=== PATIENT | male | born 1985 | race Caucasian/White ===

== ENCOUNTER 2016-08-14 18:10 | Emergency (ER) | payer SELFPAY ==
[2016-08-14 18:26] VITALS: BMI 34.5
[2016-08-14] MEDS ORDERED: Sodium Chloride 0.9% 1,000 ML IV ONE (19:19)
--- NOTE | 2016-08-14 19:19 | C.PDOC ---
History Of Present Illness 31 y/o male presents to the ED with complaints of swelling and tenderness to left cheek. Pt states has had an abscess draining for the past week, decreasing in size. Denies fever, chills, or any other complaints. Pt reports history of insulin dependent diabetes, but no longer takes medications for the past 6 months. Time Seen by Provider: 08/14/16 19:19 Chief Complaint (Nursing): Abnormal Skin Integrity History Per: Patient History/Exam Limitations: no limitations Onset/Duration Of Symptoms: Days Current Symptoms Are (Timing): Still Present Quality Of Symptoms: Painful, Swollen, Draining Severity: Moderate Pain Scale Rating Of: 5 Recent travel outside of the [place]: No Past Medical History Reviewed: Historical Data, Nursing Documentation, Vital Signs Vital Signs: Last Vital Signs Temp 97.9 F 08/14/16 21:30 Pulse 74 08/14/16 21:30 Resp 18 08/14/16 21:30 BP 122/78 08/14/16 21:30 Pulse Ox 97 08/14/16 21:30 - Medical History PMH: Pericarditis - [facility] Procedures DRAINAGE OF ABD SUBCU/FASCIA, OPEN APPROACH (06/22/15) DRAINAGE OF PERICARDIAL CAVITY WITH DRAIN DEV, OPEN APPROACH (05/30/15) Family History: States: Unknown Family Hx - Social History Hx Alcohol Use: No Hx Substance Use: No - Immunization History Hx Tetanus Toxoid Vaccination: Yes Hx Influenza Vaccination: No Hx Pneumococcal Vaccination: No Review Of Systems Constitutional: Negative for: Fever, Chills ENT: Positive for: Other (swelling and tenderness to left cheek, draining abscess) Cardiovascular: Negative for: Chest Pain Respiratory: Negative for: Shortness of Breath Gastrointestinal: Negative for: Nausea, Vomiting, Abdominal Pain Musculoskeletal: Negative for: Neck Pain, Shoulder Pain Skin: Positive for: Rash, Lesions Neurological: Negative for: Weakness Psych: Negative for: Anxiety Physical Exam - Physical Exam Appears: Non-toxic Skin: Warm, Dry, No Rash, Other (2x3 cm abscess to left cheek with purulent drainage tenderness and surrounding erythema) Head: Atraumatic, Normacephalic Eye(s): bilateral: Normal Inspection, PERRL, EOMI Ear(s): Bilateral: Normal Nose: Normal Oral Mucosa: Moist Gingiva: Normal Appearing Throat: No Erythema, No Exudate Neck: Supple Cardiovascular: Rhythm Regular, No Murmur Respiratory: No Rales, No Rhonchi, No Wheezing Extremity: Bilateral: Atraumatic Neurological/Psych: Oriented x3, Normal Speech Gait: Steady ED Course And Treatment - Laboratory Results Result Diagrams: 08/14/16 19:54 08/14/16 19:54 O2 Sat by Pulse Oximetry: 99 (room air) Pulse Ox Interpretation: Normal Reevaluation Time: 21:54 Reassessment Condition: Improved Medical Decision Making Medical Decision Making: Upon provider reevaluation patient is feeling better, is medically stable, and requires no further treatment in the ED at this time. Patient will be discharged home with Rx for keflex, motrin . Counseling was provided and all questions were answered regarding diagnosis and need for follow up with the referred clinic. There is agreement to discharge plan. Return if symptoms persist or worsen. Disposition Counseled Patient/Family Regarding: Studies Performed, Diagnosis, Need For Followup, Rx Given - Disposition Referrals: [facility] [Outside] [facility] [Outside] Disposition: HOME/ ROUTINE Disposition Time: 19:19 Condition: FAIR Additional Instructions: Please return if fever, chills, readness that spreads. Also you are allergic to Vancomycin Prescriptions: Cephalexin [Keflex] 500 mg PO QID #28 capsule Ibuprofen [Motrin Tab] 800 mg PO TID PRN #15 tab PRN Reason: Pain, Moderate (4-7) Instructions: Abscess (ED) - Clinical Impression Clinical Impression: Skin lesion, Cellulitis, Abscess, Vancomycin adverse reaction - Scribe Statement The provider has reviewed the documentation as recorded by the Ulices Aguilera Provider Attestation: All medical record entries made by the Ulices were at my direction and personally dictated by me. I have reviewed the chart and agree that the record accurately reflects my personal performance of the history, physical exam, medical decision making, and the department course for this patient. I have also personally directed, reviewed, and agree with the discharge instructions and disposition.
[2016-08-14] MEDS ORDERED: Sodium Chloride 0.9% 1,000 ML ONE (19:40)
[2016-08-14] MEDS ORDERED: Vancomycin 1 GM 1 GM/250 ML BAG IVPB SCH (19:45)
[2016-08-14] MEDS ORDERED: Vancomycin 1 GM 1 GM/250 ML BAG IVPB ONE (19:57)
[2016-08-14 20:01] LABS: BASO # 0.1 K/uL (0.0-0.2); BASO % 0.9 % (0.0-2.0); EOS # 0.3 K/uL (0.0-0.7); LYMPH % 27.4 % (20.0-40.0); MEAN CORPUSCULAR HEMOGLOBIN 30.4 pg (27.0-31.0); MEAN CORPUSCULAR HGB CONC 33.3 g/dL (33.0-37.0); MEAN PLATELET VOLUME 7.9 fL (7.2-11.7); MONO # 1.1 K/uL (0.0-0.8); MONO % 9.8 % (0.0-10.0); RED CELL DISTRIBUTION WIDTH 12.3 % (11.5-14.5); WHITE BLOOD COUNT 10.9 K/uL (4.8-10.8)
[2016-08-14 20:06] LABS: CHLORIDE 101 mmol/L (98-107); SODIUM 138 mmol/L (132-148)
[2016-08-14 20:07] LABS: POTASSIUM 3.5 mmol/L (3.6-5.2)
[2016-08-14 20:09] LABS: ALB/GLOB RATIO 1.2 (1.0-2.1); ALKALINE PHOSPHATASE 79 U/L (38-126); ALT/SGPT 65 U/L (21-72); AST/SGOT 41 U/L (17-59); BILIRUBIN,TOTAL 0.6 mg/dL (0.2-1.3); BLOOD UREA NITROGEN 13 mg/dL (9-20); CARBON DIOXIDE 26 mmol/L (22-30); GFR AFRICAN-AMERICAN > 60; GLUCOSE,RANDOM 121 mg/dL (75-110)
[2016-08-14 20:10] LABS: CALCIUM 9.3 mg/dl (8.6-10.4)
[2016-08-14 20:11] LABS: INR 1.1
[2016-08-14 20:18] LABS: VENOUS BLOOD GAS BASE EXCESS 0.3 mmol/L (0.0-2.0); VENOUS BLOOD GAS PCO2 45 mmHg (40-60); VENOUS BLOOD PH 7.37 (7.32-7.43)
[2016-08-14 20:23] LABS: RBC URINE 147 /hpf (0-3); URINE BACTERIA RARE (<OCC); URINE BILIRUBIN NEGATIVE (NEGATIVE); URINE BLOOD 3+ (NEGATIVE); URINE COLOR Yellow (YELLOW); URINE GLUCOSE (UA) NORMAL (Normal); URINE KETONE NEGATIVE (NEGATIVE); URINE LEUKOCYTE ESTERASE NEG Leu/uL (Negative); URINE PROTEIN 1+ mg/dL (NEGATIVE); URINE UROBILINOGEN NORMAL mg/dL (0.2-1.0); WBC URINE 5 /hpf (0-5)
[2016-08-14] MEDS ORDERED: ceFAZolin IV 2 gm in Dextrose 2 GM/100 ML BAG IVPB ONE (21:00)
[2016-08-14] MEDS ORDERED: DiphenhydrAMINE 50 mg/ml Inj IVP STA (21:11)
[2016-08-14] MEDS ORDERED: DiphenhydrAMINE 50 mg/ml Inj ONE (21:14)
[2016-08-14 21:47] VITALS: BP 122/78; PULSE 74; RESP 18; TEMP 97.9
[2016-08-14 21:57] VITALS: O2SAT 99
== END 2016-08-14 22:30 | disposition home or self-care (01) ==
LOC: SUPCPDRO 18:10 → C.ER 18:10
DX: L02.01 Cutaneous abscess of face (principal); L03.211 Cellulitis of face; T88.7XXA Unspecified adverse effect of drug or medicament, initial encounter; T36.8X5A Adverse effect of other systemic antibiotics, initial encounter
CPT/HCPCS: 80053; 81001; 82009; 82803; 82948; 85025; 85610; 85730; 87040; 96365; 96367; 96375; 99284; J0690; J1200; J1885; J2930; J3370; J7040